=== PATIENT | male | born 1940 | race Caucasian/White ===

== ENCOUNTER 2019-09-23 07:52 | Day surgery (SDC) | payer MEDICARE, OTHER ==
[~2019-09-23] VITALS: Ht 182.9 cm; Wt 82.2 kg
[2019-09-23] VITALS (7 sets, daily range): BP systolic 127–160; BP diastolic 66–81; PULSE 59–62; TEMP 97.8
[~2019-09-23 07:52] MED LIST: ALDACTONE 25MG25 M1 PO; ASPIRIN 81M81 MG/TA2 PO; CARDIZEM CD 18180 MG PO; COREG 25MG25 MG/TAB PO; COUMADIN 2MG2 MG/TAB PO; GLUCOPHAGE500 MG/TAB PO; LASIX 20MG TABL20 MG PO; NITROQUICK0.4 MG SL; PLAVIX 75MG TAB75 MG PO; ZANTAC 150MG T150 MG PO; ZESTRIL40 MG PO; ZOCOR 40MG40 MG PO
[2019-09-23 08:27] LABS: HEMOGLOBIN 11.3 g/dl (13.5-18.0); MEAN CELL VOLUME 91 fl (80.0-100.0); MEAN CORPUSCULAR HEMOGLOBIN 29 pg (27.0-31.0); MEAN CORPUSCULAR HGB CONC 31 g/dl (33.0-37.0); MEAN PLATELET VOLUME 8.9 fl (7.4-10.4); PLATELET COUNT 201 K/mm3 (130-400); RED BLOOD COUNT 3.97 M/mm3 (4.20-5.60); REDCELL DISTRIBUTION WIDTH-CV 14.2 % (11.5-14.5)
[2019-09-23 08:33] LABS: INR 1.4 (0.8-3.0); PROTHROMBIN TIME 16.5 SECONDS (9.7-12.8)
[2019-09-23 08:37] LABS: CALCIUM 8.9 mg/dL (8.4-10.2); CREATININE, serum 1.42 (0.66-1.25); POTASSIUM 4.4 mmol/L (3.4-5.0)
[2019-09-23] MEDS ORDERED: ZOLOFT 50MG50 MG PO (09:19)
[2019-09-23] MEDS ORDERED: GLUCOTROL 5M5 MG/TAB PO (09:20)
[2019-09-23] MEDS ORDERED: ARICEPT10 MG PO (09:21)
[2019-09-23] MEDS ORDERED: NORVASC 10MG10 MG PO (09:21)
[2019-09-23] MEDS ORDERED: CORDARONE200 MG/TAB PO (09:22)
[2019-09-23] MEDS ORDERED: NESINA6.25 PO (09:24)
--- NOTE | 2019-09-23 10:53 | NUR ---
SEE MERGE REPORT FOR MEDICATION ADMINISTRATION TIMES WELL INTRA/POST SEDATION ASSESSMENTS.
[2019-09-23] MEDS ORDERED: CLEOCIN HCL300 MG PO (12:52)
--- NOTE | 2019-09-23 14:20 | NUR ---
Pt has done well with recovery, he has stayed in bed for 2 hours, ice pack to pacer site x 2 for 15-20 minutes each time. pt has been able to eat and drink with no problem. Pt is ambulatory in room and out to bathroom and back with steady gait. DC,RX and f/u instructions were reviewed with patient and his daughter.. He was given copies of instructions r/t moderate sedation, generator exchange and MD prepared dc instructions. They both denied questions or concerns at time of departure. Saline lock to [employer] [facility] was dc'd, cath intact, dressing was applied prior to his departure. he was escorted to exit via wheelchair.
== END 2019-09-23 14:40 | disposition home or self-care (01) ==
LOC: COL.CAR 07:52
PROVIDERS: Internal Medicine Cardiovascular Disease
DX: Z45.02 Encounter for adjustment and management of automatic implantable cardiac defibrillator (principal); I25.10 Atherosclerotic heart disease of native coronary artery without angina pectoris; I47.1 Supraventricular tachycardia; Z86.73 Personal history of transient ischemic attack (TIA), and cerebral infarction without residual deficits; I11.0 Hypertensive heart disease with heart failure; I50.22 Chronic systolic (congestive) heart failure; Z88.1 Allergy status to other antibiotic agents
CPT/HCPCS: C1721; J2250; J3010; J3370; J7030; J7050